=== PATIENT | female | born 1990 | race African-American/Black ===

== ENCOUNTER 2019-11-25 22:00 | Emergency (ER) | payer SELFPAY ==
[2019-11-25] VITALS (7 sets, daily range): BP systolic 106–129; BP diastolic 71–84; PULSE 101–125; RESP 15–22; TEMP 36.8; O2SAT 95–100
--- NOTE | ~2019-11-25 | CT_ITS ---
EXAMINATION: CT abdomen pelvis w con EXAM DATE: 11/25/2019 23:29 INDICATION: Nausea vomiting and hyperbilirubinemia. TECHNIQUE: Spiral CT of the abdomen and pelvis was performed following intravenous injection of 100 m L Omnipaque 350. Axial, coronal and sagittal images were reviewed. The dose-length product (DLP) fo r this examination was 245.47 mGy-cm. The exposure was tailored according to patient size (auto mA e xposure control), and iterative reconstruction (ASIR) was used as additional dose reduction technique . There is no prior study for comparison. FINDINGS: The liver, spleen, adrenal glands and pancreas are unremarkable. The gallbladder is not id entified, has likely been surgically resected. There is mild common and intrahepatic biliary duct dil ation which is not uncommon following cholecystectomy. The pancreatic duct is normal in caliber. Ther e is no calcified choledocholithiasis but please note that approximately 30% of biliary stones can be noncalcified. Portal and splenic veins are patent. Kidneys enhance symmetrically. There is no hyd ronephrosis. The uterus is anteverted and morphologically normal. The bladder is unremarkable. T here is no retroperitoneal or pelvic lymphadenopathy. There are surgical changes consistent with appendectomy. The stomach and small bowel are unremarkab le. There is expected amount of colonic stool. No free intraperitoneal gas. The heart is normal in size. There are no pericardial or pleural effusions. The lung bases are unremarkable. The bones are unremarkable. IMPRESSION: 1. Status post appendectomy and cholecystectomy. 2. Mild common and intrahepatic biliary duct dilation could be from cholecystectomy but can't exclud e noncalcified choledocholithiasis given history provided. MRCP would be exam of choice for further e valuation if indicated clinically. 3. No acute intra-abdominal findings. Reviewed, dictated and finalized at location G. IMPRESSION: 1. Status post appendectomy and cholecystectomy. 2. Mild common and intrahepatic biliary duct dilation could be from cholecyste ctomy but can't exclude noncalcified choledocholithiasis given history provided . MRCP would be exam of choice for further evaluation if indicated clinically. 3. No acute intra-abdominal findings.
[2019-11-25 22:19] LABS: Basophils Absolute Auto 0.1 K/mm3 (0.0-0.1); Basophils Percent Auto 0.6 % (0.2-1.2); Eosinophils Percent Auto 0.5 % (0-4.4); Hematocrit 38.1 % (37.0-47.0); Hemoglobin 12.4 g/dL (12.0-15.0); Immature Granulocyte Absolute 0.01 K/mm3 (0.00-0.031); Immature Granulocyte Percent A 0.1 % (0-0.5); Lymphocytes Absolute Auto 1.84 K/mm3 (0.9-3.2); Lymphocytes Percent Auto 21.7 % (18.3-44.2); Mean Corpuscular HGB Conc 32.5 g/dl (32-36); Mean Corpuscular Volume 82.8 fl (80-100); Mean Platelet Volume 9.3 fl (7.4-10.4); Monocytes Absolute Auto 0.7 K/mm3 (0.1-0.6); Monocytes Percent Auto 7.7 % (2.6-8.5); Neutrophils Absolute Auto 5.9 K/mm3 (1.3-6.7); Neutrophils Percent Auto 69.4 % (45.5-73.1); Platelet Count Result 403 k/mm3 (150-375); Red Cell Distribution Width 16.2 % (11.5-14.5); White Blood Count 8.5 K/mm3 (4.5-10.0)
[2019-11-25 22:23] LABS: Add Urine Microscopic? YES; Appearance Urine Cloudy (Clear); Bacteria Urine 4+ /hpf; Bilirubin Urine Negative (Negative); Color Urine Amber (Yellow); Glucose Urine UA Negative (Negative); Ketones Urine Trace mg/dL (Negative); Leukocyte Esterase Ur 2+ LEU/UL (Negative); Mucus Urine Heavy /lpf; Nitrate Urine Negative (Negative); Protein Urine 2+ mg/dL (Negative); Squamous Epithelial Cell Urine Many /hpf (Few); WBC Urine 51-75 /hpf
[2019-11-25 22:24] LABS: Blood Urine Negative (Negative)
[2019-11-25 22:32] LABS: Alanine Aminotransferase 16 U/L (4-35); Albumin Level 5.1 g/dL (3.5-5.1); Alkaline Phosphatase 59 U/L (38-126); Aspartate Amino Transferase 31 U/L (14-36); Bilirubin,Total 1.9 mg/dL (0.2-1.3); Blood Urea Nitrogen 14 mg/dL (7-17); Calcium 9.8 mg/dL (8.4-10.2); Carbon Dioxide 24 mmol/L (22-30); Chloride 106 mmol/L (98-107); Estimated Glomerular Filt Rate > 60; Glucose 102 mg/dL (65-105); Lipase 33 U/L (23-300); Potassium 3.5 mmol/L (3.4-5.0); Sodium 140 mmol/L (137-145)
--- NOTE | 2019-11-25 22:35 | PC.NURSE ---
PT HR 150 edp notified and at bedside. pt alert and oriented and answering all questions appropriately.
--- NOTE | 2019-11-25 22:38 | ECG_ITS ---
Measurements Intervals [place] Rate: 102 P: 81 VT: 133 QRS: 78 QRSD: 81 T: 47 QT: 339 QTc: 443 Interpretive Statements SINUS TACHYCARDIA NONSPECIFIC T-WAVE ABNORMALITY- INFERIOR LEADS BASELINE ARTIFACT- I, II, III, AVR, AVL, AVF, V2 ABNORMAL ECG Electronically Signed On 11-26-2019 7:02:50 CDT by Jason Zavala D.O.
--- NOTE | 2019-11-25 22:39 | ED.ABDPAIN ---
HPI - Abdominal Pain General Chief Complaint: Abdominal Pain Stated Complaint: Abd Pain Time Seen by Provider: 11/25/19 22:37 History of Present Illness HPI narrative: Patient presents for severe upper abdominal pain over 5 days, but worse in the last 2 days. She has a history of 4 abdominal surgeries, including ruptured appendix, gallbladder, laparoscopy. She is vomiting, and nauseated. She has had no fever. MD elicited complaint: abdominal pain Pertinent past history: other (Ruptured appendix and cholecystectomy) Onset (ago): day(s) Pain Consistency: constant Location: epigastric Severity: severe Pain scale (0-10): 10 Exacerbating factors: nothing Relieving factors: nothing Associated symptoms: nausea and vomiting Related Data Allergies Allergy/AdvReac Type Severity Reaction Status Date / Time prochlorperazine Allergy Other Verified 11/25/19 22:09 [From Compazine] haloperidol [From Haldol] AdvReac Swelling Verified 11/25/19 22:11 of Lip/Tongue/Throat metoclopramide [From Reglan] AdvReac Unknown Verified 11/25/19 22:11 Review of Systems Review of Systems: Narrative: CONSTITUTIONAL: Denies fever, chills, or sweats. EYES: Denies visual changes, redness, or discharge. ENT: Denies rhinorrhea, congestion, sore throat, or otalgia. CARDIOVASCULAR: Denies chest pain, palpitations, or edema. RESPIRATORY: Denies cough or dyspnea. GASTROINTESTINAL: She has abdominal pain, nausea, vomiting. GENITOURINARY: Denies dysuria or hematuria. SKIN: Denies rash or itching. MUSCULOSKELETAL: Denies back pain, joint pain, or myalgia. NEUROLOGIC: Denies headache, numbness, or weakness. PSYCHIATRIC: Denies anxiety or depression. [facility] Past Medical History Medical History (Updated 11/26/19 @ 01:23 by Keke Alford MD) Ruptured appendix Surgical History Surgical History (Updated 11/25/19 @ 22:41 by Keke Alford MD) History of appendectomy Hx of cholecystectomy Exam Narrative: Exam Narrative: GENERAL: Well-appearing, well-nourished, rocking in pain on her hands and knees. HEAD: Normocephalic, atraumatic. EYES: PERRLA and EOMI. ENT: Nares clear, no rhinorrhea or epistaxis. Mucous membranes moist. NECK: Supple. CHEST: Clear to auscultation. No respiratory distress. HEART: Regular rate and rhythm. No murmur heard. Normal peripheral pulses. ABDOMEN: Soft, nontender, nondistended, normal active bowel sounds. Multiple abdominal scars. EXTREMITIES: Normal range of motion. No edema. SKIN: Warm, dry, no rash. NEURO: No focal deficits. Alert and oriented x3. PSYCH: Distressed. Const: General: alert Orientation/consciousness: patient oriented x3 Course Reevaluation(s) Reevaluation #1: Went back into check on the patient and she is pain-free. I explained that the CAT scan did not show the source of her discomfort, and that perhaps she should have an outpatient ultrasound. She says she does not currently have a physician, so I will refer her to Dr. Fragoso. She requests Xi and Michael Date: 11/26/19 Time: 01:27 Vital Signs Vital signs: Vital Signs Temperature 98.2 F 11/25/19 22:06 Pulse Rate 125 H 11/25/19 22:06 Respiratory Rate 15 11/25/19 22:06 Blood Pressure 120/83 11/25/19 22:06 Pulse Oximetry 100 11/25/19 22:06 Temperature 98.2 F 11/25/19 22:06 Pulse Rate 93 11/26/19 00:31 Respiratory Rate 13 11/26/19 00:31 Blood Pressure 116/90 11/26/19 00:31 Pulse Oximetry 100 11/26/19 00:31 MDM - Abdominal Pain Differential Diagnosis Differential diagnosis: Likely abdominal pain, diverticulitis, gastroenteritis, pancreatitis and small bowel obstruction Medical Records Attestation: I reviewed the patient's medical records. Lab Data Attestation: I reviewed the patient's lab results. Result diagrams: 11/25/19 22:09 11/25/19 22:09 Labs: Lab Results 11/25/19 11/25/19 11/25/19 Range/Units 22:09 22:09 22:13 WBC 8.5 (4.5-10.0) K/mm3 RBC
[2019-11-25] MEDS: MORPHINE SULFATE 4 MG/ML INJ IV PUSH (22:42)
[2019-11-25] MEDS: SODIUM CHLORIDE 0.9% IV 1,000 ML 999 ML IV CONT (22:43)
[2019-11-25] MEDS: ONDANSETRON INJ 4 MG/2 ML VIAL IV PUSH (22:43)
[2019-11-25] MEDS: HYDROMORPHONE HCL 1 MG/ML INJ IV PUSH (23:01)
[2019-11-26] VITALS (7 sets, daily range): BP systolic 116–126; BP diastolic 83–93; PULSE 93–99; RESP 13–19; O2SAT 100
--- NOTE | 2019-11-26 01:11 | PC.NURSE ---
Pt requesting to leave.
== END 2019-11-26 01:25 | disposition home or self-care (01) ==
PROVIDERS: Emergency Provider Emergency Medicine
DX: R10.10 Upper abdominal pain, unspecified (principal); R11.2 Nausea with vomiting, unspecified; R00.0 Tachycardia, unspecified
CPT/HCPCS: 36415; 74177; 80053; 81001; 81025; 83690; 85025; 87077; 87086; 87088; 87186; 93005; 96361; 96374; 96375; 99284; J1170; J1200; J2270; J2405; J7030; Q9967

== ENCOUNTER 2019-11-26 19:42 | Emergency (ER) | payer MEDICAID, SELFPAY ==
[2019-11-26 19:46] VITALS: BP 127/91; PULSE 53; RESP 24; TEMP 36.6; O2SAT 100
--- NOTE | 2019-11-26 20:04 | PC.NURSE ---
pt refusing to get into onto the stretcher. I am not comfortable on the bed .
--- NOTE | 2019-11-26 20:07 | ED.ABDPAIN ---
HPI - Abdominal Pain General Chief Complaint: Abdominal Pain Stated Complaint: abd Time Seen by Provider: 11/26/19 20:03 History of Present Illness HPI narrative: Patient presents with severe abdominal pain. She was seen here last night, with the same symptoms. Her CAT scan came back unremarkable. Her symptoms resolved entirely with narcotics. She said that she tried some Gatorade today but was unable to keep it down. MD elicited complaint: abdominal pain Pertinent past history: other (Same symptoms yesterday. Resolved with pain medication and IV fluids.) Onset (ago): hour(s) Location: [facility] Severity: severe Related Data Allergies Allergy/AdvReac Type Severity Reaction Status Date / Time prochlorperazine Allergy Other Verified 11/26/19 19:52 [From Compazine] haloperidol [From Haldol] AdvReac Swelling Verified 11/26/19 19:52 of Lip/Tongue/Throat metoclopramide [From Reglan] AdvReac Unknown Verified 11/26/19 19:52 Review of Systems Review of Systems: Narrative: Unable to get a full review of systems due to the patient crying and pain. PMFSH Past Medical History Medical History Ruptured appendix Surgical History Surgical History History of appendectomy Hx of cholecystectomy Social History Social History Gender identity (if verbalized by the patient): Female Exam Narrative: Exam Narrative: GENERAL: Well-appearing, well-nourished, crying in severe distress. Unable to lay on the exam table. She wants to be on hands and knees. HEAD: Normocephalic, atraumatic. EYES: PERRLA and EOMI. ENT: Nares clear, no rhinorrhea or epistaxis. Mucous membranes moist. NECK: Supple. CHEST: Clear to auscultation. No respiratory distress. HEART: Regular rate and rhythm. No murmur heard. Normal peripheral pulses. ABDOMEN: Soft, nontender, nondistended. Multiple abdominal scars. EXTREMITIES: Normal range of motion. No edema. SKIN: Warm, dry, no rash. NEURO: No focal deficits. Alert and oriented x3. PSYCH: Crying and upset. Course Reevaluation(s) Reevaluation #1: Patient refuses to go to CAT scan. I went in to see her, and I told her she should either go to CAT scan or gone home. She told me that I could not send her AMA that I had to discharge her. She said she would not go to CAT scan unless she got more pain medication. Discussed with the charge nurse who agrees the patient can be checked out AMA. Date: 11/26/19 Time: 21:42 Vital Signs Vital signs: Vital Signs Temperature 97.8 F 11/26/19 19:46 Pulse Rate 53 L 11/26/19 19:46 Respiratory Rate 24 H 11/26/19 19:46 Blood Pressure 127/91 H 11/26/19 19:46 Pulse Oximetry 100 11/26/19 19:46 Temperature 97.8 F 11/26/19 19:46 Pulse Rate 53 L 11/26/19 19:46 Respiratory Rate 24 H 11/26/19 19:46 Blood Pressure 127/91 H 11/26/19 19:46 Pulse Oximetry 100 11/26/19 19:46 MDM - Abdominal Pain MDM Narrative Medical decision making narrative: This may be a picture of intermittent bowel obstruction, with severe pain alternating with no pain. Hopefully the CAT scan tonight will show some disease process that we can treat. Differential Diagnosis Differential diagnosis: Likely abdominal pain Medical Records Attestation: I reviewed the patient's medical records. Lab Data Attestation: I reviewed the patient's lab results. Result diagrams: 11/26/19 20:32 11/26/19 20:32 Labs: Lab Results 11/26/19 11/26/19 11/26/19 Range/Units 20:13 20:32 20:32 WBC 9.1 (4.5-10.0) K/mm3 RBC 4.42 (4.2-5.4) M/mm3 Hgb 11.9 L (12.0-15.0) g/dL Hct 36.7 L (37.0-47.0) % MCV 83.0 (80-100) fl MCH 26.9 (26-34) pg MCHC 32.4 (32-36) g/dl RDW 16.1 H (11.5-14.5) % Plt Count 373 (150-375) k/mm3 MPV 9.1 (7.4-10.4) fl Immature Gran % (Auto)
--- NOTE | 2019-11-26 20:29 | PC.NURSE ---
3 failed iv starts by this RN. Pt is a very difficult stick. Anne Cueva RN to attempt iv start at this time. Pt states they usually have to use US or start my iv in my neck . Pt also states that she was very surprised that the ER nurse who took care of her last night was able to start an iv in her right a/c.
[2019-11-26] MEDS: ONDANSETRON INJ 4 MG/2 ML VIAL IV PUSH (20:36)
[2019-11-26] MEDS: FAMOTIDINE 20 MG/2 ML VIAL IV PUSH (20:36)
[2019-11-26] MEDS: MORPHINE SULFATE 4 MG/ML INJ IV PUSH (20:36)
[2019-11-26] MEDS: SODIUM CHLORIDE 0.9% IV 1,000 ML 999 ML IV CONT (20:37)
[2019-11-26 20:38] LABS: Amphetamine Screen Urine Negative (Negative); Barbiturate Screen Urine Negative (Negative); Benzodiazepines Screen Urine Negative (Negative); Cannabinoid Screen Urine Positive (Negative); Cocaine Screen Urine Negative (Negative); Methadone Screen Urine Negative (Negative); Opiate Screen Urine Positive (Negative); Phencyclidine Screen Urine Negative (Negative)
[2019-11-26 20:38] LABS: Basophils Percent Auto 0.2 % (0.2-1.2); Eosinophils Percent Auto 0.1 % (0-4.4); Hematocrit 36.7 % (37.0-47.0); Hemoglobin 11.9 g/dL (12.0-15.0); Immature Granulocyte Absolute 0.02 K/mm3 (0.00-0.031); Immature Granulocyte Percent A 0.2 % (0-0.5); Lymphocytes Absolute Auto 1.12 K/mm3 (0.9-3.2); Lymphocytes Percent Auto 12.4 % (18.3-44.2); Mean Corpuscular HGB Conc 32.4 g/dl (32-36); Mean Corpuscular Hemoglobin 26.9 pg (26-34); Mean Platelet Volume 9.1 fl (7.4-10.4); Monocytes Absolute Auto 0.3 K/mm3 (0.1-0.6); Monocytes Percent Auto 3.6 % (2.6-8.5); Neutrophils Absolute Auto 7.6 K/mm3 (1.3-6.7); Neutrophils Percent Auto 83.5 % (45.5-73.1); Platelet Count Result 373 k/mm3 (150-375); Red Blood Count 4.42 M/mm3 (4.2-5.4); Red Cell Distribution Width 16.1 % (11.5-14.5); White Blood Count 9.1 K/mm3 (4.5-10.0)
[2019-11-26 20:49] LABS: Alanine Aminotransferase 14 U/L (4-35); Alkaline Phosphatase 59 U/L (38-126); Aspartate Amino Transferase 28 U/L (14-36); Bilirubin,Total 1.9 mg/dL (0.2-1.3); Blood Urea Nitrogen 10 mg/dL (7-17); Calcium 9.2 mg/dL (8.4-10.2); Carbon Dioxide 22 mmol/L (22-30); Chloride 107 mmol/L (98-107); Estimated Glomerular Filt Rate > 60; Glucose 99 mg/dL (65-105); Potassium 3.5 mmol/L (3.4-5.0); Sodium 140 mmol/L (137-145)
--- NOTE | 2019-11-26 21:39 | PC.NURSE ---
PER EMERGENCY CARE TECH, PT REFUSED CT AGAIN DUE TO PAIN. DR. RUSSELL AWARE AND IN TO SEE THE PATIENT.
--- NOTE | 2019-11-26 22:10 | PC.NURSE ---
This nurse and patient's primary nurse, Lilo, go into room and speak with patient. Patient yelling at this nurse and primary nurse that why cant I have more pain medicine, you don't care about my pain! This nurse and patient's primary nurse inform patient that the EDP states that you had already received pain medication and that no more pain medication will be given until we see something that it is needed. Patient states I'm not going to CT, I had one yesterday when I was here, I need an ultrasound. Do you know how many CAT scans I've had? I've had tons over the years, you guys are gonna give me cancer with all that radiation! This nurse and patient's primary nurse inform patient that there is no ultrasound here at night and that things can change so the CT scan is needed to see if something has changed. Then EDP enters room, You need the CT scan to see if something is wrong, so we can find the cause of your pain. You have already been given pain medication and you are not getting any more until we find out what is wrong. Patient yelling this is ridiculous, can't you see I'm in pain, I need something for pain. I cant sit still for the CT scan! This nurse and patient's primary nurse inform the patient of her options of getting the CT scan to see what is wrong, or let us remove the IV and she can be discharged. Patient then yelling I'm not doing any of that, I'm in pain! I need something for the pain! Patient then just yelling at nora nurse and Lilo, calling names such as silvino! , then lilo and nora patricio leave room and inform Charge Nurse and EDP.
--- NOTE | 2019-11-26 22:21 | PC.NURSE ---
PT CAME OUT OF BATHROOM BETWEEN ROOMS 6 & 7, I asked the patient to go back to her room, trying to explain to her she cannot have pain meds as per order of Dr Alford prior to her going to CT. This patient would not speak with with 'someone get her out of here (meaning this RN), she is being rude to me', as she was walking out of the room again. This RN attempted to explain to the patient, the has given orders, she again started yelling, get her out of here, she is being rude to me'. This RN exited the room & made Dr. Alford aware. Dr. Alford again states she is not giving more pain med at this time.
--- NOTE | 2019-11-26 23:03 | PC.NURSE ---
Addendum entered by Roberta Ramsey RN 11/26/19 23:15: 2250-pt screaming this place is racist . Is it because I am black . Original Note: 2249- pt continues to yell and scream at the staff. Pt very disruptive to the ED. 2252- [employer] here , pt screaming at them., pt then went to CT. 2299-this RN witnessed pt walking out of ED, hospital security & [employer] following her.
--- NOTE | 2019-11-26 23:13 | PC.NURSE ---
this nurse went into 7 to hold the door open and close the curtain because Sarah RN was busy with another pt. Pt began asking this nurse why she would not be able to get any pain medication and it was explained to her that the doctor wanted to find out what the problem was first before medicating her, and pt had already received pain medication. Pt was advised that the next step was to get the CT scan to find out what was wrong and pt became loud and yelling with obscenities that staff here did not care about her and that we were treating her like this because I'm black. After approx 7 minutes of pt yelling loudly with obscenities, Dr. Alford came into the room and stated that she would be calling the police for a disturbance if she heard the pt yelling again. Pt then agreed to get onto the stretcher and go to CT scan, yelling about the staff treating her like this because you all are racist. Pt was yelling still as stretcher was rolled into CT exam room. technical staff engineer and XR tech there were explaining the procedure to pt and pt stated she was going to try to sit still but she knew she wouldn't be able to because she was still uncomfortable and wanted pain medicine to make her more comfortable. Pt the got onto the CT table, signed the waiver and was lifted to go into the CT machine and pt jumped off the CT table and ran down the hallway with security behind her. Pt called this nurse bitch multiple times and stated that she was recording everything with her phone. Pt was informed that recording was illegal in the hospital. When pt returned back to 7 there were 2 [place] [employer] officers waiting by the door to the room. The pt was requesting to leave and this nurse went into the room to take out pt's IV and secure the cabinet. Pt got dressed and was escorted out of the ED by [place] DELVALLE
--- NOTE | 2019-11-26 23:41 | PC.NURSE ---
2154 pt asking to speak with nurse pt informed by rn that she had to go to CT or be d/c or leave ama pt stated that we did not care about her pain and we were giving her cancer with all the CT scans pt refuses to let me take out her iv for discharge pt was yelling at RN and states she was not yelling that the nurse was being rude and ignorant pt then requested to speak with doctor i then returned to the room around 2209 with another nurse and told pt the same thing again that she had to go to CT be discharge or leave AMA pt started yelling at staff and we left the room Charge nurse informed
== END 2019-11-27 13:50 | disposition left against medical advice (07) ==
PROVIDERS: Emergency Provider Emergency Medicine
DX: R10.9 Unspecified abdominal pain (principal); R11.10 Vomiting, unspecified
CPT/HCPCS: 36415; 80053; 80307; 85025; 96361; 96374; 96375; 99284; J2270; J2405; J7030

== ENCOUNTER 2019-12-09 21:24 | Emergency (ER) | payer MEDICAID, SELFPAY ==
--- NOTE | ~2019-12-09 | CT_ITS ---
EXAMINATION: CT abdomen pelvis w con EXAM DATE: 12/09/2019 23:09 INDICATION: Severe epigastric pain for 5 hours. TECHNIQUE: Spiral CT of the abdomen and pelvis was performed following intravenous injection of 100 m L Omnipaque 350. Axial, coronal and sagittal images were reviewed. The dose-length product (DLP) fo r this examination was 220.66 mGy-cm. The exposure was tailored according to patient size (auto mA e xposure control), and iterative reconstruction (ASIR) was used as additional dose reduction technique . Comparison is made to prior examination from 11/25/2019. FINDINGS: The liver, spleen, adrenal glands and pancreas are unremarkable. Gallbladder not identifie d, patient likely has had cholecystectomy. Portal and splenic veins are patent. Kidneys enhance sym metrically. There is no hydronephrosis. The uterus is anteverted and morphologically normal. The bladder is unremarkable. There is no retroperitoneal or pelvic lymphadenopathy. Probable appendectomy. Stomach and duodenal is moderately distended, but no focal wall thickening/ul ceration identified. There is moderate amount of colonic stool. No free intraperitoneal gas. The heart is normal in size. There are no pericardial or pleural effusions. The lung bases are unremar kable. The bones are unremarkable. IMPRESSION: 1. No acute intra-abdominal findings. 2. Moderately distended stomach, duodenum and colon. 3. Appendectomy, cholecystectomy. Reviewed, dictated and finalized at location G.
[2019-12-09 21:25] VITALS: BP 123/89; PULSE 120; RESP 30; TEMP 36.9; O2SAT 99
--- NOTE | 2019-12-09 21:37 | ED.GENADULT ---
HPI - General Adult General Chief complaint: Abdominal Pain Stated complaint: abd pain Time Seen by Provider: 12/09/19 21:37 Source: patient Mode of arrival: ambulatory Limitations: no limitations History of Present Illness HPI narrative: Patient is a 29-year-old female who presents for evaluation of abdominal pain. Patient reports upper abdominal pain that is burning in nature like an acid type sensation. Patient reports that pain started after he ate a Stephanie cheese steak from a restaurant. Patient and reports nausea without vomiting. She denies lower abdominal pain or painful urination. Patient states she has recurrent abdominal pain numerous times each week. Patient was recently seen at this facility for abdominal pain. No back pain or chest pain. Related Data Allergies Allergy/AdvReac Type Severity Reaction Status Date / Time prochlorperazine Allergy Other Verified 12/09/19 22:21 [From Compazine] haloperidol [From Haldol] AdvReac Swelling Verified 12/09/19 22:21 of Lip/Tongue/Throat Review of Systems Review of Systems: Narrative: CONSTITUTIONAL: Denies fever, chills, or sweats. EYES: Denies visual changes, redness, or discharge. ENT: Denies rhinorrhea, congestion, sore throat, or otalgia. CARDIOVASCULAR: Denies chest pain, palpitations, or edema. RESPIRATORY: Denies cough or dyspnea. GASTROINTESTINAL: Reports abdominal pain, nausea and diarrhea. GENITOURINARY: Denies dysuria or hematuria. SKIN: Denies rash or itching. MUSCULOSKELETAL: Denies back pain, joint pain, or myalgia. NEUROLOGIC: Denies headache, numbness, or weakness. [facility] Past Medical History Medical History Ruptured appendix Surgical History Surgical History History of appendectomy Hx of cholecystectomy Social History Social History (Updated 12/09/19 @ 22:04 by Aria Villalobos MD) Smoking status: Current some day smoker Alcohol intake: current Substance use: never Gender identity (if verbalized by the patient): Female Exam Narrative: Exam Narrative: GENERAL: Awake, alert, uncomfortable appearing, tearful, moaning HEAD: Normocephalic, atraumatic. EYES: PERRLA and EOMI. ENT: Nares clear, no rhinorrhea or epistaxis. Mucous membranes moist. NECK: Supple. CHEST: No respiratory distress, breathing even and non labored HEART: Regular rate, sinus rhythm ABDOMEN:Non distended, tender in epigastrium, guarding present, nonrigid EXTREMITIES: Normal range of motion. No edema. SKIN: Warm, dry, no rash. NEURO:No focal deficits. Alert and oriented x3 Course Vital Signs Vital signs: Vital Signs Temperature 36.9 C 12/09/19 21: Pulse Rate 120 H 12/09/19 21:25 Respiratory Rate 30 H 12/09/19 21:25 Blood Pressure 123/89 12/09/19 21:25 Pulse Oximetry 99 12/09/19 21: Temperature 36.9 C 12/09/19 21: Pulse Rate 120 H 12/09/19 21:25 Respiratory Rate 30 H 12/09/19 21:25 Blood Pressure 123/89 12/09/19 21:25 Pulse Oximetry 99 12/09/19 21:25 Medical Decision Making MDM Narrative Medical decision making narrative: Patient presented for return of abdominal pain after eating some fried food earlier this evening. Patient was given IV fluids, antiemetic and pain medication with complete resolution in her symptoms. Patient with reassuring laboratory results without acute kidney injury or electrolyte abnormality. No UTI. No ketones present in urine, no signs of severe dehydration on exam. CT scan shows no acute intra-abdominal process such as obstruction, volvulus, ileus, diverticulitis. At this point, patient may have peptic ulcer disease, I recommended close follow-up with a GI physician and she was given follow-up for this. Patient able to tolerate ice chips at the time of reassessment and is asymptomatic. She was then discharged home. Differential Diagnosis Differential Diagnosis: Cy
[2019-12-09 22:02] LABS: Basophils Percent Auto 0.3 % (0.2-1.2); Eosinophils Percent Auto 0.4 % (0-4.4); Hematocrit 35.1 % (37.0-47.0); Hemoglobin 11.5 g/dL (12.0-15.0); Immature Granulocyte Absolute 0.04 K/mm3 (0.00-0.031); Immature Granulocyte Percent A 0.4 % (0-0.5); Lymphocytes Absolute Auto 2.01 K/mm3 (0.9-3.2); Lymphocytes Percent Auto 19.4 % (18.3-44.2); Mean Corpuscular HGB Conc 32.8 g/dl (32-36); Mean Corpuscular Hemoglobin 27.1 pg (26-34); Mean Corpuscular Volume 82.8 fl (80-100); Mean Platelet Volume 9.1 fl (7.4-10.4); Monocytes Absolute Auto 0.8 K/mm3 (0.1-0.6); Monocytes Percent Auto 7.2 % (2.6-8.5); Neutrophils Absolute Auto 7.5 K/mm3 (1.3-6.7); Neutrophils Percent Auto 72.3 % (45.5-73.1); Platelet Count Result 385 k/mm3 (150-375); Red Blood Count 4.24 M/mm3 (4.2-5.4); White Blood Count 10.4 K/mm3 (4.5-10.0)
[2019-12-09 22:14] LABS: Alanine Aminotransferase 11 U/L (4-35); Albumin Level 4.8 g/dL (3.5-5.1); Alkaline Phosphatase 53 U/L (38-126); Aspartate Amino Transferase 20 U/L (14-36); Bilirubin,Total 0.7 mg/dL (0.2-1.3); Blood Urea Nitrogen 10 mg/dL (7-17); Calcium 9.6 mg/dL (8.4-10.2); Carbon Dioxide 27 mmol/L (22-30); Chloride 103 mmol/L (98-107); Estimated Glomerular Filt Rate > 60; Glucose 106 mg/dL (65-105); Lipase 69 U/L (23-300); Potassium 4.4 mmol/L (3.4-5.0); Sodium 138 mmol/L (137-145)
[2019-12-09] MEDS: HYDROMORPHONE HCL 1 MG/ML INJ 0.5 MG IV PUSH (22:15)
[2019-12-09] MEDS: FAMOTIDINE 20 MG/2 ML VIAL IV PUSH (22:18)
[2019-12-09] MEDS: METOCLOPRAMIDE HCL INJ 10 MG/2 ML VIAL IV PUSH (22:18)
[2019-12-09 22:51] LABS: Add Urine Microscopic? YES; Amorphous Sediment Urine Few; Appearance Urine Cloudy (Clear); Bacteria Urine 1+ /hpf; Bilirubin Urine Negative (Negative); Blood Urine Negative (Negative); Color Urine Yellow (Yellow); Glucose Urine UA Negative (Negative); Ketones Urine Negative (Negative); Leukocyte Esterase Ur Trace LEU/UL (Negative); Mucus Urine Few /lpf; Nitrate Urine Negative (Negative); Protein Urine 1+ mg/dL (Negative); Specific Grav Ur 1.026 (1.001-1.035); Squamous Epithelial Cell Urine Few /hpf (Few); WBC Urine 0-3 /hpf
== END 2019-12-09 23:43 | disposition home or self-care (01) ==
PROVIDERS: Emergency Medicine Emergency Medical Services; Emergency Provider Emergency Medicine
DX: K30 Functional dyspepsia (principal); F17.200 Nicotine dependence, unspecified, uncomplicated; R11.2 Nausea with vomiting, unspecified
CPT/HCPCS: 36415; 74177; 80053; 81001; 81025; 83690; 85025; 96374; 96375; 99284; A9270; J1170; J2765; Q9967

== ENCOUNTER 2019-12-12 00:14 | Emergency (ER) | payer MEDICAID, SELFPAY ==
[2019-12-12 00:18] VITALS: BP 152/112; PULSE 52; RESP 15; TEMP 37.2; O2SAT 97
--- NOTE | 2019-12-12 00:43 | ED.ABDPAIN ---
HPI - Abdominal Pain General Chief Complaint: Abdominal Pain Stated Complaint: Abd pain Time Seen by Provider: 12/12/19 00:32 History of Present Illness HPI narrative: Lower abdominal pain for a few weeks. Associated with intermitent diarrhea and constipation. Gabe had this numerous times in the past. She has been diagnosed with IBS. She has no Gi doctor currently. She was seen for this same complaint 3 times over the past 2 weeks and each time had a negative work-up. Related Data Allergies Allergy/AdvReac Type Severity Reaction Status Date / Time prochlorperazine Allergy Other Verified 12/09/19 22:21 [From Compazine] haloperidol [From Haldol] AdvReac Swelling Verified 12/09/19 22:21 of Lip/Tongue/Throat Review of Systems Review of Systems: All systems reviewed & are unremarkable except as noted in HPI and below Constitutional: Constitutional: Denies fever(s) Cardiovascular: Cardiovascular: Denies chest pain Gastrointestinal: Gastrointestinal: Reports abdominal pain, Reports constipation, Reports diarrhea, Reports nausea and Reports vomiting Genitourinary: Genitourinary: Denies hematuria and Denies dysuria [facility] Past Medical History Medical History Ruptured appendix Surgical History Surgical History History of appendectomy Hx of cholecystectomy Social History Social History Smoking status: Current some day smoker Alcohol intake: current Substance use: never Gender identity (if verbalized by the patient): Female Exam Const: General: healthy appearing, no acute distress and alert Orientation/consciousness: patient oriented x3 Resp: Effort & Inspection: normal respiratory effort Auscultation: clear to auscultation bilaterally Cardio: Rate: regular rate Rhythm: regular rhythm GI: GI Palp: Yes Soft to palpation and Yes Tenderness to palpation present (GI) (Diffuse) Skin: General skin exam: normal color Neuro: General: patient oriented x3, moves all extremities and CN's II-XI intact bilaterally Speech: normal speech Course Vital Signs Vital signs: Vital Signs Temperature 37.2 C 12/12/19 00:18 Pulse Rate 52 L 12/12/19 00:18 Respiratory Rate 15 06/12/20 00:18 Blood Pressure 152/112 H 12/12/19 00:18 Pulse Oximetry 97 12/12/19 00:18 Temperature 37.2 C 12/12/19 00:18 Pulse Rate 52 L 12/12/19 00:18 Respiratory Rate 15 12/12/19 00:18 Blood Pressure 152/112 H 12/12/19 00:18 Pulse Oximetry 97 12/12/19 00:18 MDM - Abdominal Pain MDM Narrative Medical decision making narrative: SHe has chronic abdominal pain with multiple recent visit and seems to be displaying drug seeking behavior. When told that she would nt be getting narcotics she chose to leave AMA Medical Records Attestation: I reviewed the patient's medical records. Lab Data Attestation: I reviewed the patient's lab results. Result diagrams: 12/12/19 00:29 12/12/19 00:29 Labs: Lab Results 12/12/19 12/12/19 Range/Units 00:29 00:29 WBC 11.9 H (4.5-10.0) K/mm3 RBC 4.24 (4.2-5.4) M/mm3 Hgb 11.7 L (12.0-15.0) g/dL Hct 35.8 L (37.0-47.0) % MCV 84.4 (80-100) fl MCH 27.6 (26-34) pg MCHC 32.7 (32-36) g/dl RDW 16.0 H (11.5-14.5) % Plt Count 410 H (150-375) k/mm3 MPV 9.2 (7.4-10.4) fl Immature Gran % (Auto) 0.3 (0-0.5) % Neut % (Auto) 75.4 H (45.5-73.1) % Lymph % (Auto) 15.2 L (18.3-44.2) % [place] % (Auto) 7.4 (2.6-8.5) % Eos % (Auto) 1.2 (0-4.4) % Baso % (Auto) 0.5 (0.2-1.2) % Lymph # (Auto) 1.81 (0.9-3.2) K/mm3 [place] # (Auto) 0.9 H (0.1-0.6) K/mm3 Eos # (Auto) 0.1 (0-0.3) K/mm3 Baso # (Auto) 0.1 (0.0-0.1) K/mm3 Abs Immat Gran (auto) 0.04 H (0.00-0.031) K/mm3 Absolute Neuts (auto) 9.0 H (1.3-6.7) K/mm3 Ab
[2019-12-12 00:52] LABS: Basophils Absolute Auto 0.1 K/mm3 (0.0-0.1); Basophils Percent Auto 0.5 % (0.2-1.2); Eosinophils Absolute Auto 0.1 K/mm3 (0-0.3); Eosinophils Percent Auto 1.2 % (0-4.4); Hematocrit 35.8 % (37.0-47.0); Hemoglobin 11.7 g/dL (12.0-15.0); Immature Granulocyte Absolute 0.04 K/mm3 (0.00-0.031); Immature Granulocyte Percent A 0.3 % (0-0.5); Lymphocytes Absolute Auto 1.81 K/mm3 (0.9-3.2); Lymphocytes Percent Auto 15.2 % (18.3-44.2); Mean Corpuscular HGB Conc 32.7 g/dl (32-36); Mean Corpuscular Hemoglobin 27.6 pg (26-34); Mean Corpuscular Volume 84.4 fl (80-100); Mean Platelet Volume 9.2 fl (7.4-10.4); Monocytes Absolute Auto 0.9 K/mm3 (0.1-0.6); Monocytes Percent Auto 7.4 % (2.6-8.5); Neutrophils Percent Auto 75.4 % (45.5-73.1); Platelet Count Result 410 k/mm3 (150-375); Red Blood Count 4.24 M/mm3 (4.2-5.4); White Blood Count 11.9 K/mm3 (4.5-10.0)
--- NOTE | 2019-12-12 01:09 | PC.NURSE ---
this rn attempted IV 3x, no success. pt has scarring to bilat arms and hands. this rn attempted to give pt GI cocktail ordered by doctor, pt refused. states it makes her sick and doesn't work. this rn attempted to give her IM bentyl, pt states i don't want that either. shots hurt and i don't want anything inserted into me. bentyl never works anyway. notified. gave this rn verbal order for PO bentyl 20mg.
--- NOTE | 2019-12-12 01:21 | PC.NURSE ---
this rn attempted to give pt PO bentyl. pt states i don't really want to take that. im nauseated, i feel like ill just throw it up. this rn stated that I could request kain carbajal from , pt states i've been taking that and it hasn't been working. i thought you said you were going to have another nurse try for an IV? This rn states yes i am but i was trying to treat your pain until someone can come attempt another IV. if you'd let me give you the bentyl IM it may help with your pain until we get the IV. pt refuses at this time. notified.
--- NOTE | 2019-12-12 01:29 | PC.NURSE ---
pt states she isn't able to urinate at this time, refused straight cath.
--- NOTE | 2019-12-12 01:30 | PC.NURSE ---
pt called out using call light. she states she is having 10/10 pain. this rn went into room. i informed her that im aware shes having pain and araceli rn will be in to attempt IV shortly.
[2019-12-12 01:35] LABS: Alanine Aminotransferase 10 U/L (4-35); Albumin Level 4.7 g/dL (3.5-5.1); Alkaline Phosphatase 51 U/L (38-126); Aspartate Amino Transferase 27 U/L (14-36); Bilirubin,Total 0.5 mg/dL (0.2-1.3); Blood Urea Nitrogen 10 mg/dL (7-17); Calcium 9.6 mg/dL (8.4-10.2); Carbon Dioxide 25 mmol/L (22-30); Chloride 104 mmol/L (98-107); Estimated Glomerular Filt Rate > 60; Glucose 99 mg/dL (65-105); Lipase 68 U/L (23-300); Potassium 4.6 mmol/L (3.4-5.0); Sodium 138 mmol/L (137-145)
--- NOTE | 2019-12-12 01:39 | PC.NURSE ---
this rn asked pt what she normally takes for pain at home and pt stated she normally takes norco. this RN informed pt that doctor isn't going to give her anything stronger, especially since she is refusing everything else that we give her. I informed her that once we get the IV we can give her her fluids that are ordered. pt states she hasn't refused shit. this rn reminded pt that she refused GI cocktail and bentyl 2x. pt states again that she is nauseated and doesn't want to take anything by mouth. she also states plus i take all that shit at home and it dont help. this rn asked pt if we are able to get the IV, if she would let us give her IV zofran and then the PO bentyl. pt states what the fuck is he going to order me for pain? this rn states thats what the bentyl is for. pt states thats not what bentyl is for. this rn educated pt that bentyl is used for abdominal cramping. pt states well im telling you it aint going to fucking work. this rn informed pt that that is what doctor wants to try initially. pt tells this rn to get the fuck out of the room if you arent going to help me. i informed her i'm trying to help her but it's hard when shes refusing everything doctor orders. pt states get the fuck out. go on across the espinal and do something. this rn states id appreciate it if you didn't talk to me the way you are, i'm trying to help you. pt again tells this RN to get out. this rn exited the room.
--- NOTE | 2019-12-12 01:47 | PC.NURSE ---
pt called out stating she is in pain. due to pt yelling at this rn and telling me to get the fuck out a few minutes prior, i did not recheck on pt due to not being comfortable. md is aware of status on pt and pain level. ifeanyi estevez states she will attempt the IV when she can. md notified.
--- NOTE | 2019-12-12 01:58 | PC.NURSE ---
this rn asked casandra estevez to attempt IV since ifeanyi estevez is still busy at the moment. he states he will try in a few minutes. rn informed of pt previous behavior.
--- NOTE | 2019-12-12 02:04 | PC.NURSE ---
casandra estevez in room with pt attempting IV
--- NOTE | 2019-12-12 02:12 | PC.NURSE ---
casandra states he wasn't able to get IV in pt. pt seen walking out of facility at this time. pt was not able to sign AMA form prior to leaving due to her walking quickly out of facility. this rn wasn't able to get exit vitals on pt.
== END 2019-12-12 02:20 | disposition left against medical advice (07) ==
PROVIDERS: Emergency Provider Emergency Medicine
DX: R10.30 Lower abdominal pain, unspecified (principal); K58.9 Irritable bowel syndrome, unspecified; F17.200 Nicotine dependence, unspecified, uncomplicated
CPT/HCPCS: 36415; 80053; 83690; 85025; 99283; A9270; J0500

== ENCOUNTER 2019-12-15 02:12 | Emergency (ER) | payer MEDICAID, SELFPAY ==
[2019-12-15 02:16] VITALS: BP 159/66; PULSE 112; RESP 22; TEMP 36.8; O2SAT 100
--- NOTE | 2019-12-15 02:35 | ED.ABDPAIN ---
HPI - Abdominal Pain General Chief Complaint: Abdominal Pain Stated Complaint: abd pain Time Seen by Provider: 12/15/19 02:35 History of Present Illness HPI narrative: 29 yo female with h/o chronic abdominal pain presents to the ED for epigastric pain. She says this started this evening at midnight. Radiates through abdomen. Associated with nausea and vomiting. This her her fourth time here for the same symptoms in less than 3 weeks. All testing has not revealed any acute issues. Last time she refused all non-narcotic treatments and left AMA. Related Data Allergies Allergy/AdvReac Type Severity Reaction Status Date / Time prochlorperazine Allergy Other Verified 12/09/19 22:21 [From Compazine] haloperidol [From Haldol] AdvReac Swelling Verified 12/09/19 22:21 of Lip/Tongue/Throat Review of Systems Review of Systems: All systems reviewed & are unremarkable except as noted in HPI and below Constitutional: Constitutional: Denies fever(s) Cardiovascular: Cardiovascular: Denies chest pain Gastrointestinal: Gastrointestinal: Reports abdominal pain, Reports nausea and Reports vomiting Genitourinary: Genitourinary: Denies dysuria [facility] Social History Social History Smoking status: Current some day smoker Alcohol intake: current Substance use: never Gender identity (if verbalized by the patient): Female Exam Const: General: healthy appearing, no acute distress and alert Orientation/consciousness: patient oriented x3 HENMT: Head: normal to inspection Resp: Effort & Inspection: normal respiratory effort Cardio: Rate: tachycardic Rhythm: regular rhythm GI: GI Palp: Yes Soft to palpation and Yes Guarding due to palpation present (GI) Skin: General skin exam: normal color Neuro: General: patient oriented x3, moves all extremities and CN's II-XI intact bilaterally Speech: normal speech Extrem: General: normal to inspection Course Vital Signs Vital signs: Vital Signs Temperature 36.8 C 12/15/19 02:16 Pulse Rate 112 H 12/15/19 02:16 Respiratory Rate 22 H 12/15/19 02:16 Blood Pressure 159/66 H 12/15/19 02:16 Pulse Oximetry 100 12/15/19 02:16 Temperature 36.8 C 12/15/19 02:16 Pulse Rate 112 H 12/15/19 02:16 Respiratory Rate 22 H 12/15/19 02:16 Blood Pressure 159/66 H 12/15/19 02:16 Pulse Oximetry 100 12/15/19 02:16 MDM - Abdominal Pain MDM Narrative Medical decision making narrative: SHe has chronic pain and displays clear signs of drug seeking behavior. During an attempt to draw blood she became verbally abusive with staff. We let her know that this would not be tolerated and given that she does not have an acute, emergent, or life threatening condition she was discharged. Discharge Plan Discharge Clinical Impression: Chronic abdominal pain Patient Disposition: Home, Self-Care Condition: Stable Instructions: Chronic Pain (ED) Prescriptions: No Action hyoscyamine sulfate [Levsin] 0.125 mg tablet 0.125 mg PO QID Qty: 14 RF: 0 ondansetron 4 mg tablet,disintegrating 4 mg PO Q8H PRN (Reason: nausea and vomiting) Qty: 10 RF: 0 famotidine [Pepcid] 20 mg tablet 20 mg PO BID 15 Days Qty: 30 RF: 0 dicyclomine 10 mg capsule 10 mg PO BID 5 Days Qty: 10 RF: 0 Follow-up/Referrals: PHYSICIAN,[facility] [Primary Care Provider] -
[2019-12-15] MEDS: ONDANSETRON INJ 4 MG/2 ML VIAL IV PUSH (02:46)
[2019-12-15] MEDS: SODIUM CHLORIDE 0.9% IV 1,000 ML 999 ML IV CONT (02:47)
[2019-12-15] MEDS: PANTOPRAZOLE SODIUM IV 40 MG VIAL IV PUSH (02:47)
--- NOTE | 2019-12-15 02:55 | PC.NURSE ---
Patient refused Bentyl, stating she takes this at home and it does not work. Patient then stated that she needs antibiotics and pain medications because my stomach is inflammed. ELVIA Gomez notified.
--- NOTE | 2019-12-15 03:21 | PC.NURSE ---
THIS RN ENTERED ROOM TO ATTEMPT TO DRAW BLOOD,PT REFUSED STATING SHE WAS IN PAIN AND UNTIL SHE WAS GIVEN PAIN MEDS NO ONE WAS GOING TO STICK HER. INFORMED SHE WAS GIVEN BENTYL FOR PAIN, SHE STATED THAT NEVER WORKS. THIS RN INFORMED HER THE DR WAS NOT GOING TO GIVE HER ANYTHING ELSE UNTIL HER BLOOD RESULTS WERE BACK. SHE STATED SHE WANTED TO TALK TO THE DR. I EXITED THE ROOM AND INFORMED EDP OF PT'S REQUEST.
[2019-12-15] MEDS: KETOROLAC 30 MG/ML VIAL (*BKC) IV PUSH (03:26)
--- NOTE | 2019-12-15 03:36 | PC.NURSE ---
0600 PT CONTINUES TO REFUSE LAB DRAW STATING NOT UNTIL YOU GIVE ME SOMETHING FOR PAIN . THIS RN EXPLAINED THAT SHE JUST GOT TORODOL IVP AND IV TYLENOL. PT YELLING THAT SHE DIDN'T COME HERE TO [facility]. INFORMED PT THAT THIS RN WILL NOW CHART THAT SHE IS REFUSING CARE. PT YELLING AT NURSE THAT SHE WOULDN'T REFUSE CARE IF YOU ALL (STAFF) KNEW WHAT YOU WERE DOING. PT YELLS AT THIS NURSE GET OUTTA HERE YOU STUPID BITCH !
--- NOTE | 2019-12-15 03:47 | PC.NURSE ---
[id number] PT REFUSING TO SIGN D/C PAPERS. PT YELLING AT STAFF THAT SHE DID NOT REFUSE CARE, PT YELLING AT STAFF THAT SHE IS IN PAIN AND WE AREN'T HELPING HER. PT INSTRUCTED TO FOLLOW UP WITH HER GI SPECIALIST SCHEDULED AND GIVEN PAPERWORK. PT NOT ACTIVELY LISTENING, PT YELLING OVER NURSE WHILE INSTRUCTIONS ARE BEING GIVEN.
--- NOTE | 2019-12-15 03:50 | PC.NURSE ---
While this RN was removing IV access, patient yelled this hospital is racist for refusing to give me pain medications. You guys went to school for this and you can't even tell me what the fuck is wrong with me or give me pain medications. It is because of the color of my skin isn't it. Patient was informed she received Toradol IVP and Tylenol IV for pain as well as Protonix.
--- NOTE | 2019-12-15 03:57 | PC.NURSE ---
As patient was walking out of the ED, passed the intake desk, patient yelling this is what they do! They try to stick me and can't and don't help me! This is what they do to black people! This is what they do! This is racist! Patient yelling statements and shaking her discharge papers at this nurse and hospital pharmacy technician Sera as she is walking out doors to the ED. ED funeral service apprentice notified.
== END 2019-12-15 03:45 | disposition home or self-care (01) ==
PROVIDERS: Emergency Provider Emergency Medicine
DX: R10.13 Epigastric pain (principal); G89.29 Other chronic pain; F17.200 Nicotine dependence, unspecified, uncomplicated; Z76.5 Malingerer [conscious simulation]
CPT/HCPCS: 96361; 96365; 96375; 99284; C9113; J0131; J1885; J2405; J7030

== ENCOUNTER 2019-12-28 21:24 | Emergency (ER) | payer MEDICAID, SELFPAY ==
[2019-12-28 21:33] VITALS: BP 129/89; PULSE 112; RESP 22; TEMP 37.6; O2SAT 100
[2019-12-28 22:05] VITALS: BP 131/71; PULSE 121; RESP 19; TEMP 37.2; O2SAT 100
--- NOTE | 2019-12-28 22:33 | ED.ABDPAIN ---
HPI - Abdominal Pain General Chief Complaint: Abdominal Pain Stated Complaint: abd pain Time Seen by Provider: 12/28/19 21:47 History of Present Illness HPI narrative: 29 yo female w/ h/o chronic abdominal pain presents to the ED c/o abdominal pain. She has had pain throughout the day yesterday. Diffuse. Worst in the epigastrium. Associated with nausea. Started after drinking heavily the night before. She has been seen here and at outside facilities numerous times for similar complaints. Related Data Home Medications Medication Instructions Recorded Confirmed ciprofloxacin HCl 12/28/19 metronidazole 12/28/19 pantoprazole PO 12/28/19 Allergies Allergy/AdvReac Type Severity Reaction Status Date / Time prochlorperazine Allergy Other Verified 12/28/19 22:37 [From Compazine] haloperidol [From Haldol] AdvReac Swelling Verified 12/28/19 22:37 of Lip/Tongue/Throat Review of Systems Review of Systems: All systems reviewed & are unremarkable except as noted in HPI and below PMFSH Social History Social History Smoking status: Current some day smoker Alcohol intake: current Substance use: never Gender identity (if verbalized by the patient): Female Exam Const: General: healthy appearing, no acute distress and alert Orientation/consciousness: patient oriented x3 HENMT: Head: normal to inspection Neck: Neck: normal visual inspection and no lymphadenopathy Chest: Chest palpation & inspection: no tenderness Resp: Effort & Inspection: normal respiratory effort Auscultation: clear to auscultation bilaterally, no rales, no rhonchi and no wheezes Cardio: Jugular venous distension: no JVD Rate: regular rate Rhythm: regular rhythm Heart sounds: no murmurs GI: Inspection: non-distended GI Palp: Yes Soft to palpation and Yes Tenderness to palpation present (GI) Skin: General skin exam: normal color Neuro: General: patient oriented x3, moves all extremities and CN's II-XI intact bilaterally Speech: normal speech Extrem: General: no edema Psych: Appearance: well kempt Affect: normal affect Course Vital Signs Vital signs: Vital Signs Temperature 37.6 C 12/28/19 21:33 Pulse Rate 112 H 12/28/19 21:33 Respiratory Rate 22 H 12/28/19 21:33 Blood Pressure 129/89 12/28/19 21:33 Pulse Oximetry 100 12/28/19 21:33 Temperature 37.2 C 12/28/19 22:05 Pulse Rate 101 H 12/28/19 23:09 Respiratory Rate 20 12/28/19 23:09 Blood Pressure 119/88 12/28/19 23:09 Pulse Oximetry 100 12/28/19 23:09 MDM - Abdominal Pain MDM Narrative Medical decision making narrative: She has a h/o chronic pain and drug seeking behavior. She did allow us to give her pepcid and zofran, but declined any further nonopioid medications. Lab Data Result diagrams: 12/28/19 22:31 12/28/19 22:31 Labs: Lab Results 12/28/19 12/28/19 Range/Units 22:31 22:31 WBC 9.8 (4.5-10.0) K/mm3 RBC 4.12 L (4.2-5.4) M/mm3 Hgb 11.4 L (12.0-15.0) g/dL Hct 34.8 L (37.0-47.0) % MCV 84.5 (80-100) fl MCH 27.7 (26-34) pg MCHC 32.8 (32-36) g/dl RDW 16.0 H (11.5-14.5) % Plt Count 403 H (150-375) k/mm3 MPV 8.8 (7.4-10.4) fl Immature Gran % (Auto) 0.3 (0-0.5) % Neut % (Auto) 74.9 H (45.5-73.1) % Lymph % (Auto) 17.7 L (18.3-44.2) % [place] % (Auto) 6.3 (2.6-8.5) % Eos % (Auto) 0.4 (0-4.4) % Baso % (Auto) 0.4 (0.2-1.2) % Lymph # (Auto) 1.73 (0.9-3.2) K/mm3 [place] # (Auto) 0.6 (0.1-0.6) K/mm3 Eos # (Auto) 0.0 (0-0.3) K/mm3 Baso # (Auto) 0.0 (0.0-0.1) K/mm3 Abs Immat Gran (auto) 0.03 (0.00-0.031) K/mm3 Absolute Neuts (auto) 7.3 H (1.3-6.7) K/mm3 Absolute Nucleated RBC 0.0 (0.0-0.012) K/mm3 Nucleated RBC % 0.0 (0.0-0.2) % Sodium 138 (137-145) mmol/L Potassium 3.4 (3.4-5.0) mmol/L Chloride 107 (98-107) mmol/L Carbon Dioxide
--- NOTE | 2019-12-28 22:36 | PC.NURSE ---
Patient was unable to provide urine sample at this time.
[2019-12-28 22:38] LABS: Basophils Percent Auto 0.4 % (0.2-1.2); Eosinophils Percent Auto 0.4 % (0-4.4); Hematocrit 34.8 % (37.0-47.0); Hemoglobin 11.4 g/dL (12.0-15.0); Immature Granulocyte Absolute 0.03 K/mm3 (0.00-0.031); Immature Granulocyte Percent A 0.3 % (0-0.5); Lymphocytes Absolute Auto 1.73 K/mm3 (0.9-3.2); Lymphocytes Percent Auto 17.7 % (18.3-44.2); Mean Corpuscular HGB Conc 32.8 g/dl (32-36); Mean Corpuscular Hemoglobin 27.7 pg (26-34); Mean Corpuscular Volume 84.5 fl (80-100); Mean Platelet Volume 8.8 fl (7.4-10.4); Monocytes Absolute Auto 0.6 K/mm3 (0.1-0.6); Monocytes Percent Auto 6.3 % (2.6-8.5); Neutrophils Absolute Auto 7.3 K/mm3 (1.3-6.7); Neutrophils Percent Auto 74.9 % (45.5-73.1); Platelet Count Result 403 k/mm3 (150-375); Red Blood Count 4.12 M/mm3 (4.2-5.4); White Blood Count 9.8 K/mm3 (4.5-10.0)
--- NOTE | 2019-12-28 22:47 | PC.NURSE ---
Patient reports still unable to provided urine, she refuses straight cath at this time.
[2019-12-28] MEDS: FAMOTIDINE 20 MG/2 ML VIAL IV PUSH (22:57)
[2019-12-28] MEDS: ONDANSETRON INJ 4 MG/2 ML VIAL IV PUSH (22:57)
[2019-12-28 23:01] LABS: Alanine Aminotransferase 16 U/L (4-35); Albumin Level 4.8 g/dL (3.5-5.1); Alkaline Phosphatase 50 U/L (38-126); Aspartate Amino Transferase 35 U/L (14-36); Bilirubin,Total 0.9 mg/dL (0.2-1.3); Blood Urea Nitrogen 10 mg/dL (7-17); Calcium 9.4 mg/dL (8.4-10.2); Carbon Dioxide 25 mmol/L (22-30); Chloride 107 mmol/L (98-107); Estimated CRCL calculation 91 ml/min; Estimated Glomerular Filt Rate > 60; Glucose 105 mg/dL (65-105); Lipase 84 U/L (23-300); Potassium 3.4 mmol/L (3.4-5.0); Sodium 138 mmol/L (137-145)
--- NOTE | 2019-12-28 23:07 | PC.NURSE ---
Patient refused the GI cocktail stating My stomach won't take it. She is requesting pain medication of medication for my nerves . EDP notified.
--- NOTE | 2019-12-28 23:08 | PC.NURSE ---
Patient states she is still unable to provide urine.
[2019-12-28 23:09] VITALS: BP 119/88; PULSE 101; RESP 20; O2SAT 100
--- NOTE | 2019-12-28 23:59 | PC.NURSE ---
Patient sitting on legs in position/rocking--frequently building construction engineer light requesting additional pain medication. MD is aware-no new orders at this time
--- NOTE | 2019-12-29 | PC.NURSE ---
Patient continues to be unable to give urine-refusing straight cath
--- NOTE | 2019-12-29 01:13 | PC.NURSE ---
Patient wanting to speak with MD regarding pain meds---Dr Estrella aware
== END 2019-12-29 02:00 | disposition home or self-care (01) ==
PROVIDERS: Emergency Provider Emergency Medicine
DX: R10.84 Generalized abdominal pain (principal); G89.29 Other chronic pain; F17.200 Nicotine dependence, unspecified, uncomplicated
CPT/HCPCS: 36415; 80053; 83690; 85025; 96374; 96375; 99284; A9270; J2405

== ENCOUNTER 2020-04-22 20:21 | Emergency (ER) | payer MEDICAID, SELFPAY ==
[2020-04-22 20:23] VITALS: BP 139/97; PULSE 114; RESP 14; TEMP 36.6; O2SAT 100
--- NOTE | 2020-04-22 20:39 | PC.NURSE ---
Patient comes up to the ED desk and tells this RN that she is suicidal. Patient is seated in view of this RN and ED security is present to sit with patient. ED Charge notified.
--- NOTE | 2020-04-22 21:45 | ED.ABDPAIN ---
HPI - Abdominal Pain General Chief Complaint: Abdominal Pain Stated Complaint: abd pain Time Seen by Provider: 04/22/20 20:49 History of Present Illness HPI narrative: 29 yo female w/ h/o chronic abdominal pain presents to the ED for generalized abdominal pain. Pain for the past 3-5 days. Associated with nausea. She reports that she has been to multiple other hospitals recently and had 3 CT scans. One of them showed an ovarian cyst. I have seen her here multiple other times for her chronic pain issues. She refuses all non narcotic medications. Her work-up is routinely negative. Today she is in the hallway yelling, Bouncing up-and-down, and crawling around on the floor in an attempt to make a scene and pressure me into ordering her narcotics. Related Data Home Medications Medication Instructions Recorded Confirmed ciprofloxacin HCl 12/28/19 metronidazole 12/28/19 pantoprazole PO 12/28/19 Allergies Allergy/AdvReac Type Severity Reaction Status Date / Time prochlorperazine Allergy Other Verified 12/28/19 22:37 [From Compazine] haloperidol [From Haldol] AdvReac Swelling Verified 12/28/19 22:37 of Lip/Tongue/Throat Review of Systems Review of Systems: ROS unobtainable: Yes other (limit due to cooperation) Constitutional: Constitutional: Denies fever(s) Cardiovascular: Cardiovascular: Denies chest pain Respiratory: Respiratory: Reports dyspnea Gastrointestinal: Gastrointestinal: Reports abdominal pain and Reports nausea Psychiatric: Psychiatric: Reports anxiety, Denies homicidal ideation and Denies suicidal ideation [facility] Past Medical History Medical History (Updated 04/23/20 @ 03:43 by Marco Gomez MD) Ruptured appendix Surgical History Surgical History History of appendectomy Hx of cholecystectomy Social History Social History Smoking status: Current some day smoker Alcohol intake: current Substance use: never Gender identity (if verbalized by the patient): Female Exam Narrative: Exam Narrative: Exam limited by lack of patient cooperation Const: General: healthy appearing, no acute distress and alert Orientation/consciousness: patient oriented x3 HENMT: Head: normal to inspection Skin: General skin exam: normal color Neuro: General: patient oriented x3 and moves all extremities Speech: normal speech Gait exam (Neuro): Normal gait present Extrem: General: normal to inspection Course Vital Signs Vital signs: Vital Signs Temperature 36.6 C 04/22/20 20:23 Pulse Rate 114 H 04/22/20 20:23 Respiratory Rate 14 04/22/20 20:23 Blood Pressure 139/97 H 04/22/20 20:23 Pulse Oximetry 100 04/22/20 20:23 Temperature 36.6 C 04/22/20 20:23 Pulse Rate 114 H 04/22/20 20:23 Respiratory Rate 14 04/22/20 20:23 Blood Pressure 139/97 H 04/22/20 20:23 Pulse Oximetry 100 04/22/20 20:23 MDM - Abdominal Pain MDM Narrative Medical decision making narrative: I explained that I would not give her any narcotic pain medication unless her work-up revealed an acutely painful condition that would warrant it. At that point she decided that she would sig-out AMA. Medical Records Attestation: I reviewed the patient's medical records. Discharge Plan Discharge Clinical Impression: Abdominal pain Qualifiers: Abdominal location: generalized Qualified Code(s): R10.84 - Generalized abdominal pain Patient Disposition: Left Against Medical Advice Condition: Stable Prescriptions: No Action hyoscyamine sulfate [Levsin] 0.125 mg tablet 0.125 mg PO QID Qty: 14 RF: 0 famotidine [Pepcid] 20 mg tablet 20 mg PO BID 15 Days Qty: 30 RF: 0 dicyclomine 10 mg capsule 10 mg PO BID 5 Days Qty: 10 RF: 0 metronidazole 500 mg tablet RF: 0 ciprofloxacin HCl 500 mg tablet RF: 0 pantoprazole 40 mg tablet
== END 2020-04-22 21:51 | disposition left against medical advice (07) ==
LOC: ANHED 21:06
PROVIDERS: Emergency Provider Emergency Medicine
DX: R10.84 Generalized abdominal pain (principal); F17.200 Nicotine dependence, unspecified, uncomplicated
CPT/HCPCS: 99281

== ENCOUNTER 2021-01-24 19:16 | Emergency (ER) | payer MEDICAID, SELFPAY ==
--- NOTE | 2021-01-24 19:38 | PC.NURSE ---
Pt up to the desk stating take my name off I'm going to another hospital . Pt noted to be walking out of the ED with a steady gait.
== END 2021-01-25 05:28 | disposition left against medical advice (07) ==
LOC: ANHED 19:48
DX: Z53.21 Procedure and treatment not carried out due to patient leaving prior to being seen by health care provider (principal)
CPT/HCPCS: 99199

== ENCOUNTER 2021-04-25 03:43 | Emergency (ER) | payer MEDICAID, SELFPAY ==
[2021-04-25 03:52] VITALS: BP 134/94; PULSE 99; RESP 20; TEMP 36.7; O2SAT 100
[2021-04-25] MEDS: ONDANSETRON HCL ODT 4 MG TABLET PO (04:19)
[2021-04-25 04:38] LABS: Basophils Percent Auto 0.3 % (0.2-1.2); Eosinophils Absolute Auto 0.1 K/mm3 (0-0.3); Eosinophils Percent Auto 1.1 % (0-4.4); Hematocrit 34.8 % (37.0-47.0); Hemoglobin 11.5 g/dL (12.0-15.0); Immature Granulocyte Absolute 0.02 K/mm3 (0.00-0.031); Immature Granulocyte Percent A 0.2 % (0-0.5); Lymphocytes Absolute Auto 2.04 K/mm3 (0.9-3.2); Lymphocytes Percent Auto 23.1 % (18.3-44.2); Mean Corpuscular Hemoglobin 28.8 pg (26-34); Mean Platelet Volume 8.9 fl (7.4-10.4); Monocytes Absolute Auto 0.7 K/mm3 (0.1-0.6); Monocytes Percent Auto 7.4 % (2.6-8.5); Neutrophils Percent Auto 67.9 % (45.5-73.1); Platelet Count Result 269 k/mm3 (150-375); Red Cell Distribution Width 14.7 % (11.5-14.5); White Blood Count 8.8 K/mm3 (4.5-10.0)
--- NOTE | 2021-04-25 04:41 | ED.GENADULT ---
HPI - General Adult General Chief complaint: Abdominal Pain Stated complaint: ABD pain Time Seen by Provider: 04/25/21 04:11 History of Present Illness HPI narrative: Patient is a 30-year-old female who presents the emergency department with chief complaint of abdominal pain nausea vomiting. Patient reports that she has history of GI related issues and has history of gastritis before in the past patient states that about a week ago she was drinking and then has been having problems keeping things down since that. 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 Patient reports symptoms or not improved by anything or worsened by eating. Related Data Home Medications Medication Instructions Recorded Confirmed ciprofloxacin HCl 12/28/19 metronidazole 12/28/19 pantoprazole PO 12/28/19 Allergies Allergy/AdvReac Type Severity Reaction Status Date / Time droperidol Allergy Other Verified 04/25/21 03:56 metoclopramide [From Reglan] Allergy Other Verified 04/25/21 03:56 prochlorperazine Allergy Other Verified 04/25/21 03:56 [From Compazine] haloperidol [From Haldol] AdvReac Swelling Verified 04/25/21 03:56 of Lip/Tongue/Throat Review of Systems Review of Systems: A 10 system review of systems was completed on the patient and is negative except for what is stated in the HPI. Nursing and ancillary documentation was reviewed. [facility] Past Medical History Medical History (Updated 04/25/21 @ 05:21 by Del Correa MD) Ruptured appendix Surgical History Surgical History History of appendectomy Hx of cholecystectomy Social History Social History Smoking status: Current some day smoker Alcohol intake: current Substance use: never Gender identity (if verbalized by the patient): Female Exam Narrative: GENERAL: Well-appearing, well-nourished, and in no acute distress. HEAD: Normocephalic, atraumatic. EYES: PERRLA and EOMI. ENT: Nares clear, no rhinorrhea or epistaxis. Mucous membranes moist. NECK: Supple. CHEST: Clear to auscultation. No respiratory distress. HEART: Regular rate and rhythm. No murmur heard. Normal peripheral pulses. ABDOMEN: Soft, nontender, nondistended, normal active bowel sounds. EXTREMITIES: Normal range of motion. No edema. SKIN: Warm, dry, no rash. NEURO: No focal deficits. Alert and oriented x3. PSYCH: Normal mood and affect. Course Vital Signs Vital signs: Vital Signs Temperature 36.7 C 04/25/21 03:52 Pulse Rate 99 04/25/21 03:52 Respiratory Rate 20 04/25/21 03:52 Blood Pressure 134/94 H 04/25/21 03:52 Pulse Oximetry 100 04/25/21 03:52 Temperature 36.7 C 04/25/21 03:52 Pulse Rate 99 04/25/21 03:52 Respiratory Rate 20 04/25/21 03:52 Blood Pressure 134/94 H 04/25/21 03:52 Pulse Oximetry 100 04/25/21 03:52 Medical Decision Making Vital Signs Vital Signs: Vital Signs Temperature 36.7 C 04/25/21 03:52 Pulse Rate 99 04/25/21 03:52 Respiratory Rate 20 04/25/21 03:52 Blood Pressure 134/94 H 04/25/21 03:52 Pulse Oximetry 100 04/25/21 03:52 Temperature 36.7 C 04/25/21 03:52 Pulse Rate 99 04/25/21 03:52 Respiratory Rate 20 04/25/21 03:52 Blood Pressure 134/94 H 04/25/21 03:52 Pulse Oximetry 100 04/25/21 03:52 Lab Data Result diagrams: 04/25/21 04:27 04/25/21 04:27 Labs: Lab Results 04/25/21 04/25/21 Range/Units 04:27 04:27 WBC 8.8 (4.5-10.0) K/mm3 RBC 4.00 L (4.2-5.4) M/mm3 Hgb 11.5 L (12.0-15.0) g/dL Hct 34.8 L (37.0-47.0) % MCV 87.0 (80-100) fl MCH 28.8 (26-34) pg MCHC 33.0 (32-36) g/dl RDW 14.7 H (11.5-14.5) % Plt Count 269 (150-375) k/m
[2021-04-25 04:50] LABS: Add Urine Microscopic? YES; Appearance Urine Cloudy (Clear); Bacteria Urine 1+ /hpf; Bilirubin Urine Negative (Negative); Blood Urine Negative (Negative); Color Urine Amber (Yellow); Glucose Urine UA Negative (Negative); Ketones Urine Negative (Negative); Leukocyte Esterase Ur 2+ LEU/UL (Negative); Mucus Urine Heavy /lpf; Nitrate Urine Negative (Negative); Protein Urine 1+ mg/dL (Negative); Squamous Epithelial Cell Urine Moderate /hpf (Few); WBC Urine 21-30 /hpf
[2021-04-25 04:54] LABS: Alanine Aminotransferase 11 U/L (4-35); Albumin Level 4.3 g/dL (3.5-5.1); Alkaline Phosphatase 43 U/L (38-126); Anion Gap 11 mmol/L (8-16); Aspartate Amino Transferase 20 U/L (14-36); Bilirubin,Total 0.7 mg/dL (0.2-1.3); Blood Urea Nitrogen 10 mg/dL (7-17); Calcium 9.3 mg/dL (8.4-10.2); Carbon Dioxide 19 mmol/L (22-30); Chloride 108 mmol/L (98-107); Estimated Glomerular Filt Rate > 60; Glucose 98 mg/dL (65-110); Lipase 37 U/L (23-300); Potassium 3.9 mmol/L (3.4-5.0); Sodium 138 mmol/L (137-145)
--- NOTE | 2021-04-25 04:59 | PC.NURSE ---
Patient came to this nurse multiple times stating this is ridiculous! I need pain meds. I came in with abdominal pain. I should be getting pain meds and imaging. Patient was getting closer to this nurse and using her hands to speak and raising her voice. This nurse informed patient multiple times that the doctor stated that we will wait until the labs are resulted before pain medications and imaging would be ordered. Patient stated I know what is wrong with me and I need pain medications. I need to speak to the doctor! This nurse informed her that the physician is caring for other patients but is aware of the request for pain medications. Patient threw her hands up and yelled well I need to see the doctor then! I need to be treated like a patient! ER Charge nurse aware and security aware. Patient has a history of violent behavior towards staff.
[2021-04-25] MEDS: KETOROLAC 30 MG/ML VIAL (*BKC) IM (05:25)
--- NOTE | 2021-04-25 05:30 | PC.NURSE ---
Elvira DELVALLE contacted as patient is screaming at staff and security. Threatening, name calling, etc. Elvira enbrookte at this time.
[2021-04-25 06:12] LABS: Specific Grav Ur 1.031 (1.001-1.035)
== END 2021-04-25 05:35 | disposition home or self-care (01) ==
PROVIDERS: Emergency Provider Emergency Medicine
DX: R10.84 Generalized abdominal pain (principal); G89.29 Other chronic pain; F17.200 Nicotine dependence, unspecified, uncomplicated
CPT/HCPCS: 36415; 80053; 81001; 81025; 83690; 85025; 87077; 87086; 87088; 87186; 96372; 99283; A9270; J1885